=== PATIENT | male | born 1980 | race Caucasian/White ===

== ENCOUNTER 2017-11-16 00:56 | Emergency (ER) | payer SELFPAY ==
[2017-11-16 02:58] VITALS: BP 117/67; PULSE 79; TEMP 98.1; BMI 19.9
--- NOTE | 2017-11-16 03:03 | PDOC ---
History of Present Illness - General Chief Complaint: Rash Stated Complaint: ALLERGIC RX Time Seen by Provider: 11/16/17 02:40 - History of Present Illness Initial Comments: 11/16/17 03:01 Pt is a 37 y/o gentleman w/ no significant past medical history who presents this morning to [facility] c/o severe itchying and pain across his entire body. Pt endorses that he initially developed an erythematous rash on the medial aspect of his left upper arm on Thursday. Since then, he has developed the same rash all over his body including both of his lower extremities, back of his neck, on his back, and on his chest. Pain is a 10/10 in severity, described as a burning sensation and is partially relieved with OTC Benadryl. Pt states he has not changed any daily routines, has not traveled outdoors, used any different lotions or creams, or altered his daily routine. Pt states that his mother recently did his laundry for him and may have used a different cleaning product. Denies cp, sob, lares, nausea, dizziness, vomiting, fever, or chill. Past History - Past Medical History Allergies/Adverse Reactions: Allergies Allergy/AdvReac Type Severity Reaction Status Date / Time No Known Allergies Allergy Verified 01/19/16 10:42 Home Medications: Ambulatory Orders Diphenhydramine HCl [Benadryl -] 25 mg PO Q6H #28 capsule 11/16/17 COPD: No Other medical history: Pt denies - Suicide/Smoking/Psychosocial Hx Smoking History: Current every day smoker Have you smoked in the past 12 months: Yes Number of Cigarettes Smoked Daily: 10 Information on smoking cessation initiated: No 'Breaking Loose' booklet given: 01/19/16 Hx Alcohol Use: No Drug/Substance Use Hx: No Substance Use Type: Marijuana *Physical Exam - Vital Signs Last Vital Signs Temp Pulse Resp BP Pulse Ox 98.1 F 79 18 117/67 98 11/16/17 02:54 11/16/17 02:54 11/16/17 02:54 11/16/17 02:54 11/16/17 02:54 - Physical Exam Comments: 11/16/17 04:40 GEN- AD, Intense Pruritis Neuro- AAOx3, CN 2-12 intact RS- CTA B/L CV- RRR No MRG S1 S2 ABD- NT ND No HSM Skin- Erythematous, pruritic rashes throughout Medical Decision Making - Medical Decision Making 11/16/17 03:20 Pt to be given Diphehydramine 50 mg IM and Decadron 10 mg PO. 11/16/17 04:42 Pt given referral to see [employer]. *DC/Admit/Observation/Transfer Diagnosis at time of Disposition: Bite of animal flea, Rash and nonspecific skin eruption - Discharge Dispostion Disposition: HOME Condition at time of disposition: Fair Decision to Admit order: No - Prescriptions Prescriptions: Diphenhydramine HCl [Benadryl -] 25 mg PO Q6H #28 capsule - Referrals Referrals: Kavya Davenport MD [Staff Physician] - - Patient Instructions - Post Discharge Activity
--- NOTE | 2017-11-16 03:10 | PDOC ---
Attending Attestation - Resident Resident Name: Da Mendez - ED Attending Attestation I have performed the following: I have examined & evaluated the patient, The case was reviewed & discussed with the resident, I agree w/resident's findings & plan - HPI HPI: 11/20/17 20:06 Pt comes with rashes/hives on body - Physicial Exam PE: 11/20/17 20:06 Red raised bumps and excoriations look like bug bites. - Medical Decision Making 11/20/17 20:07 Pt will be sent home with benadryl for itching as well as permethrin cream. He was advised to follow with dermatology.
[2017-11-16] MEDS ORDERED: DEXAMETHASONE LIQUID 0.5 MG/5 ML 240 ML BULK BOTTLE PO ONE (03:12)
[2017-11-16] MEDS ORDERED: PERMETHRIN 5% TOPICAL CREAM 60 GM TUBE TP ONE (03:32)
[2017-11-16] MEDS ORDERED: DEXAMETHASONE SOD PHOSPHATE 10 MG/1 ML VIAL ONE (03:39)
== END 2017-11-16 04:40 | disposition home or self-care (01) ==
LOC: JER 00:56
PROC: 3E023GC Introduction of Other Therapeutic Substance into Muscle, Percutaneous Approach (ICD-10-PCS; principal; 2017-11-16)
DX: S20.462A Insect bite (nonvenomous) of left back wall of thorax, initial encounter (principal); S20.461A Insect bite (nonvenomous) of right back wall of thorax, initial encounter; S20.362A Insect bite (nonvenomous) of left front wall of thorax, initial encounter; S20.361A Insect bite (nonvenomous) of right front wall of thorax, initial encounter; S80.862A Insect bite (nonvenomous), left lower leg, initial encounter; S80.861A Insect bite (nonvenomous), right lower leg, initial encounter; W57.XXXA Bitten or stung by nonvenomous insect and other nonvenomous arthropods, initial encounter; Y93.89 Activity, other specified; Y92.89 Other specified places as the place of occurrence of the external cause; Y99.8 Other external cause status
CPT/HCPCS: 99281-25

== ENCOUNTER 2017-11-19 21:08 | Emergency (ER) | payer SELFPAY ==
[2017-11-19 21:12] VITALS: BP 119/58; PULSE 98; TEMP 99; BMI 19.9
--- NOTE | 2017-11-19 21:12 | PDOC ---
Rapid Medical Evaluation Time Seen by Provider: 11/19/17 21:10 Medical Evaluation: Allergies Allergy/AdvReac Type Severity Reaction Status Date / Time No Known Allergies Allergy Verified 01/19/16 10:42 11/19/17 21:10 I have performed a brief in-person evaluation of this patient. The patient presents with a chief complaint of rash 1-2 weeks. Treated here for the same with cream and steriod but states rash not relieved by medication given. Pertinent physical exam findings: NAD even and unlabored breathing scattered lesions on entire body I have ordered the following: none The patient will proceed to the Ed for further evaluation.
--- NOTE | 2017-11-19 22:51 | PDOC ---
History of Present Illness - General Chief Complaint: Rash Stated Complaint: ALLERGIC REACTION Time Seen by Provider: 11/19/17 21:10 Past History - Travel Traveled outside of the country in the last 30 days: No Close contact w/someone who was outside of country & ill: No - Past Medical History Allergies/Adverse Reactions: Allergies Allergy/AdvReac Type Severity Reaction Status Date / Time No Known Allergies Allergy Verified 11/19/17 21:12 Home Medications: Ambulatory Orders Fluconazole 150 mg PO DAILY #2 tablet 11/19/17 Nystatin Cream [Mycostatin Cream -] 1 applic TP BID #60 grams 11/19/17 COPD: No - Suicide/Smoking/Psychosocial Hx Smoking History: Current every day smoker Have you smoked in the past 12 months: Yes Number of Cigarettes Smoked Daily: 10 Information on smoking cessation initiated: Yes 'Breaking Loose' booklet given: 01/19/16 Hx Alcohol Use: No Drug/Substance Use Hx: No Substance Use Type: Marijuana Review of Systems - Review of Systems Able to Perform ROS?: Yes Comments:: 11/19/17 22:59 CONSTITUTIONAL: Absent: fever, chills, diaphoresis, generalized weakness, malaise, loss of appetite HEENT: Absent: rhinorrhea, nasal congestion, throat pain, throat swelling, difficulty swallowing, mouth swelling, ear pain, eye pain, visual Changes CARDIOVASCULAR: Absent: chest pain, loss of consciousness, palpitations, irregular heart rate, peripheral edema RESPIRATORY: Absent: cough, shortness of breath, dyspnea with exertion, orthopnea, wheezing, stridor, hemoptysis GASTROINTESTINAL: Absent: abdominal pain, abdominal distension, nausea, vomiting, diarrhea, constipation, melena, hematochezia GENITOURINARY: Absent: dysuria, frequency, urgency, hesitancy, hematuria, flank pain, genital pain MUSCULOSKELETAL: Absent: myalgia, arthralgia, joint swelling SKIN: Absent: rash, itching, pallor HEMATOLOGIC/IMMUNOLOGIC: Absent: easy bleeding, easy bruising, lymphadenopathy, frequent infections ENDOCRINE: Absent: unexplained weight gain, unexplained weight loss, heat intolerance, cold intolerance NEUROLOGIC: Absent: headache, focal weakness or paresthesias, dizziness, unsteady gait, seizure, mental status changes, bladder or bowel incontinence PSYCHIATRIC: Absent: anxiety, depression, suicidal or homicidal ideation, hallucinations. Is the patient limited Lao proficient: No *Physical Exam - Vital Signs Last Vital Signs Temp Pulse Resp BP Pulse Ox 99.0 F 98 H 18 119/58 98 11/19/17 21:10 11/19/17 21:10 11/19/17 21:10 11/19/17 21:10 11/19/17 21:10 - Physical Exam Comments: 11/19/17 22:59 GENERAL: Well developed, well nourished. Awake and alert. No acute distress. HEENT: Normocephalic, atraumatic. PERRLA, EOMI. No conjunctival pallor. Sclera are non- icteric. Moist mucous membranes. Oropharynx is clear. NECK: Supple. Full ROM. No JVD. Carotid pulses 2+ and symmetric, without bruits. No thyromegaly. No lymphadenopathy. CARDIOVASCULAR: Regular rate and rhythm. No murmurs, rubs, or gallops. Distal pulses are 2+ and symmetric. PULMONARY: No evidence of respiratory distress. Lungs clear to auscultation bilaterally. No wheezing, rales or rhonchi. ABDOMINAL: Soft. Non-tender. Non-distended. No rebound or guarding. No organomegaly. Normoactive bowel sounds. MUSCULOSKELETAL Normal range of motion at all joints. No bony deformities or tenderness. No CVA tenderness. EXTREMITIES: No cyanosis. No clubbing. No edema. No calf tenderness. SKIN: Warm and dry. Normal capillary refill. No rashes. No jaundice. NEUROLOGICAL: Alert, awake, appropriate. Cranial nerves 2-12 intact. No deficits to light touch and temperature in face, upper extremities and lower extremities. No motor deficits in the in face, upper extremities and lower extremities. Normoreflexic in the upper and lower extremities. Normal speech. Toes are down- going bilaterally. Gait is normal without ataxia. PSYCHIATRIC: Cooperative. Good eye contact. Appropriate mood and affect. *DC/Admit/Observation/Transfer Diagnosis at time of Disposition: Tinea corporis - Discharge Dispostion Disposition: HOME Condition at time of disposition: Stable Decision to Admit order: No - Prescriptions Prescriptions: Fluconazole 150 mg PO DAILY #2 tablet Nystatin Cream [Mycostatin Cream -] 1 applic TP BID #60 grams - Referrals Referrals: Kavya Davenport MD [Staff Physician] - - Patient Instructions Printed Discharge Instructions: DI for Tinea Corporis Additional Instructions: You have ringworm or tinea corporis. Please use the nystatin cream twice a day to affected areas. Take the fluconazole once today. Then take one more pill next Thursday. Please keep the body as dry as possible. Baby powder may help. Rotate or shoes and change your clothes when at work. Follow-up with dermatology as soon as possible. Return to the emergency department if you have fevers, worsening rash despite treatment, vomiting, or any changes in her symptoms. - Post Discharge Activity Forms/Work/School Notes: Back to Work
== END 2017-11-19 22:59 | disposition home or self-care (01) ==
LOC: JERFT 21:08
DX: B35.4 Tinea corporis (principal)
CPT/HCPCS: 99281-25

== ENCOUNTER 2017-12-01 21:52 | Emergency (ER) | payer SELFPAY ==
[2017-12-01 22:05] VITALS: BP 127/69; PULSE 80; TEMP 98.7; BMI 19.3
== END 2017-12-01 23:40 | disposition left against medical advice (07) ==
LOC: JER 21:52
DX: Z53.21 Procedure and treatment not carried out due to patient leaving prior to being seen by health care provider (principal)
CPT/HCPCS: 99281-25

== ENCOUNTER 2018-12-17 20:28 | Emergency (ER) | payer OTHER ==
[2018-12-17] MEDS ORDERED: ASPIRIN 81 MG CHEWABLE TABLETS ONE (20:40)
[2018-12-17] MEDS ORDERED: ASPIRIN 81 MG CHEWABLE TABLETS PO ONE ×2 (20:40→20:49)
--- NOTE | 2018-12-17 20:40 | PDOC ---
Attending Attestation - Resident Resident Name: Fabricio Hughes - ED Attending Attestation I have performed the following: I have examined & evaluated the patient, The case was reviewed & discussed with the resident, I agree w/resident's findings & plan - HPI HPI: 12/17/18 20:39 Pt comes with panic attack and crushing chest pain. No drug or alcohol use. Smokes only weed. Happened to be driving to the movies with his son. He has no PMHx and no PSHx and he has no fam hx of disease or CAD or MO. - Physicial Exam PE: 12/17/18 20:42 Slight tachy 101 HR. Lings clear Normal heart and lung exam. Skinny; no edema; abd soft NT ND - Medical Decision Making 12/17/18 20:42 CXR pending EKG NSR No ST elevation ASA ordered BP normal labs are being drawn 12/17/18 21:10 Pt has increased markings in the bilateral lung zamora. Normal sized heart and aorta 12/17/18 21:31 Pt wants to sign out AMA
--- NOTE | 2018-12-17 20:49 | PDOC ---
History of Present Illness - General Chief Complaint: Chest Pain Stated Complaint: CHEST PAIN Time Seen by Provider: 12/17/18 20:38 - History of Present Illness Initial Comments: The pt is a 38M w/ no reported who presents for evaluation of acute onset substernal chest pain that started while driving. The pt states the pain was crushing, non-radiating, associated with anxiety, SOB, and diaphoresis. He was noted to be bradycardic in field to 40s and was given Atropine 0.5 mg w/ improvement to 100s. He also received NTG 0.4mg SL and IVF in the field with symptomatic improvement, but not resolution. On arrival the pt reports persistent CP but resolution of SOB and diaphoresis. He denies having had symptoms like this before or any preceding incident/ stimulus. He endorses smoking 1/2ppd He denies fevers/chills, GALICIA, vision changes, current SOB, abdominal pain, N/V/C/ D, dysuria, hematuria, or changes in sensation/strength 12/17/18 21:38 Past History - Past Medical History Allergies/Adverse Reactions: Allergies Allergy/AdvReac Type Severity Reaction Status Date / Time No Known Allergies Allergy Verified 12/01/17 22:05 Home Medications: Ambulatory Orders Fluconazole 150 mg PO DAILY #2 tablet 11/19/17 Nystatin Cream [Mycostatin Cream -] 1 applic TP BID #60 grams 11/19/17 COPD: No - Psycho Social/Smoking Cessation Hx Smoking History: Current every day smoker Have you smoked in the past 12 months: Yes Number of Cigarettes Smoked Daily: 10 'Breaking Loose' booklet given: 01/19/16 Hx Alcohol Use: Yes Drug/Substance Use Hx: No Substance Use Type: Marijuana Review of Systems - Review of Systems Able to Perform ROS?: Yes Comments:: GENERAL/CONSTITUTIONAL: No fever or chills. No weakness HEAD, EYES, EARS, NOSE AND THROAT: No change in vision. No change in hearing. No sore throat CARDIOVASCULAR: +chest pain; denies current SOB RESPIRATORY: +chronic cough; hemoptysis GASTROINTESTINAL: No nausea, vomiting, diarrhea or constipation GENITOURINARY: No dysuria, frequency, or change in urination MUSCULOSKELETAL: No joint or muscle swelling or pain. No neck or back pain SKIN: No rash NEUROLOGIC: No headache, vertigo, loss of consciousness, or change in strength/ sensation ENDOCRINE: No increased thirst. No abnormal weight change HEMATOLOGIC/LYMPHATIC: No anemia, easy bleeding, or history of blood clots ALLERGIC/IMMUNOLOGIC: No hives or skin allergy 12/17/18 20:49 Is the patient limited Yi proficient: No *Physical Exam - Vital Signs Vital Signs Period Temp Pulse Resp BP Sys/Landin Pulse Ox Last 24 Hr 98.2 F 104 19 142/94 100-100 - Physical Exam Comments: GENERAL: Awake, alert, and oriented to person/place/time, in no acute distress HEAD: No signs of trauma, normocephalic, atraumatic EYES: PERRLA, EOMI, sclera anicteric, conjunctiva clear ENT: Hearing grossly normal, nares patent, oropharynx clear without exudates. Moist mucosa LUNGS: No distress, speaks in full sentences, clear to auscultation bilaterally HEART: Tachycardic rate with regular rhythm, normal S1 and S2, no murmurs appreciated, peripheral pulses normal and equal bilaterally ABDOMEN: Soft, nontender, normoactive bowel sounds. No guarding, no rebound EXTREMITIES: Normal inspection, Normal range of motion, no edema. No clubbing or cyanosis NEUROLOGICAL: Cranial nerves II through XII grossly intact. Normal speech, normal gait, no focal sensorimotor deficits SKIN: Warm, Dry 12/17/18 20:49 ED Treatment Course - LABORATORY CBC & Chemistry Diagram: 12/17/18 20:43 12/17/18 20:43 - Medications Given in the ED: ED Medications Discontinued Medications Generic Name Dose Route Start Last Admin Trade Name Freq PRN Reason Stop Dose Admin Aspirin 162 mg 12/17/18 20:40 12/17/18 20:43 Asa - PO 12/17/18 20:41 162 mg ONCE ONE Administration Medical Decision Making - Medical Decision Making The pt is a 38M w/ a history of smoking who presents for evaluation of sudden onset substernal chest pressure that started approximately 30-45min prior to arrival. s/p Atropine 0.5mg IV once, NTG 0.4mg SL once, and 250cc NS by EMS ED Course Pt placed on monitor IV access obtained/confirmed Labs sent ECG CXR IVF Pt reports chest pain improving from field ECG w/ sinus tachycardia; HR 102; QTc 414; No axis deviation, no RIO; no TWI Mild leukocytosis to 13.1 No anemia Lytes unremarkable No DANUTA LFTs wnl Trop I neg Lipase wnl Attempted to financial health counselor pt however, pt would not agree to stop/listen or sign AMA form. Pt removed his own IVs. 12/17/18 21:44 Discharge - Discharge Information Problems reviewed: Yes Clinical Impression/Diagnosis: Cough Chest pain Qualifiers: Chest pain type: unspecified Qualified Code(s): R07.9 - Chest pain, unspecified Disposition: ELOPED - Admission No - Follow up/Referral - Patient Discharge Instructions - Post Discharge Activity
[2018-12-17 20:53] VITALS: BP 142/94; PULSE 104; TEMP 98.2; BMI 19.9
[2018-12-17 20:55] LABS: BASO % 0.5 % (0-2.0); HEMATOCRIT 37.7 % (35.4-49); HEMOGLOBIN 12.5 GM/dL (11.7-16.9); LYMPH % 16.9 % (8-40); MCH 30.4 pg (25.7-33.7); MCHC 33.1 g/dl (32.0-35.9); MEAN CELL VOLUME 91.8 fl (80-96); MEAN PLT VOLUME 9.8 fl (7.5-11.1); MONO % 6.4 % (3.8-10.2); NEUT % 74.2 % (42.8-82.8); PLATELET COUNT 211 K/MM3 (134-434); RBC 4.11 M/mm3 (4.00-5.60); RDW 13.1 % (11.9-15.9); WHITE BLOOD COUNT 13.1 K/mm3 (4.0-10.0)
[2018-12-17 21:07] LABS: INR 1.1 (0.83-1.09)
[2018-12-17] MEDS ORDERED: AZITHROMYCIN IVPB 500 MG in DEXTROSE 5%-WATER - 250 ML IVPB ONE (21:14)
[2018-12-17] MEDS ORDERED: CEFTRIAXONE 1 GM in DEXTROSE 5%-WATER - 50 ML IVPB ONE (21:14)
[2018-12-17] MEDS ORDERED: CEFTRIAXONE 1 GM/50 ML BAG ONE (21:23)
[2018-12-17] MEDS ORDERED: AZITHROMYCIN IVPB 500 MG/250 ML BAG IVPB ONE (21:23)
[2018-12-17 21:28] LABS: ALBUMIN 3.8 g/dl (3.4-5.0); BILIRUBIN,TOTAL 0.2 mg/dL (0.2-1); BLOOD UREA NITROGEN 17.3 mg/dL (7-18); CALCIUM 8.2 mg/dL (8.5-10.1); CREATININE 0.9 mg/dL (0.55-1.3); POTASSIUM 3.7 mmol/L (3.5-5.1); TOT PROT 6.6 g/dl (6.4-8.2)
--- NOTE | 2018-12-18 09:53 | EKG ---
Test Reason : Blood Pressure : / mmHG Vent. Rate : 102 BPM Atrial Rate : 102 BPM P-R Int : 176 ms QRS Dur : 084 ms QT Int : 318 ms P-R-T Axes : 063 039 027 degrees QTc Int : 414 ms POOR DATA QUALITY, INTERPRETATION MAY BE ADVERSELY AFFECTED SINUS TACHYCARDIA POSSIBLE LEFT ATRIAL ENLARGEMENT NO PREVIOUS ECGS AVAILABLE Confirmed by LAURA ROSENBERG MD ([id number]) on 12/18/2018 9:52:48 AM Referred By: Confirmed By:LAURA ROSENBERG MD
== END 2018-12-17 21:53 | disposition left against medical advice (07) ==
LOC: JER 20:28
DX: R07.9 Chest pain, unspecified (principal); R05 Cough; F41.9 Anxiety disorder, unspecified; D72.829 Elevated white blood cell count, unspecified; F17.210 Nicotine dependence, cigarettes, uncomplicated; F12.10 Cannabis abuse, uncomplicated
CPT/HCPCS: 36415; 71045-TC-FY; 80053; 82550; 82553; 83690; 84484; 85025; 85610; 93005; 93010; 99284-25